=== PATIENT | female | born 1950 | race Hispanic/Latino ===

== ENCOUNTER 2017-02-13 12:19 | Outpatient (CLI) | payer MEDICARE ==
--- NOTE | 2017-02-14 09:13 | Mammography Report ---
BILATERAL DIGITAL AUGMENTED SCREENING MAMMOGRAM with CAD: 02/13/17 12:19:00 CLINICAL: Routine screening. And COMPARISON:01/04/16 FINDINGS: Screening views with and without implant displacement demonstrate relatively fatty breasts. No mass, architectural distortion or suspicious calcifications. Bilateral subglandular implants with extensive capsular calcification are unchanged compared to previous exams. IMPRESSION: No mammographic evidence of malignancy. BI-RADS CATEGORY: 2 -- Benign RECOMMENDATION: Routine mammographic screening in one year. ACR BI-RADS MAMMOGRAPHIC CODES: 0 = Needs additional imaging evaluation; 1 = Negative; 2 = Benign; 3 = Probably benign; 4 = Suspicious; 5 = Malignant; 6 = Known biopsy-proven malignancy COMMENT: 1. Dense breast tissue, i.e., adenosis, fibrocystic changes, etc., may obscure an underlying neoplasm. 2. Approximately 10% of cancers are not detected with mammography. 3. A negative mammography report should not delay biopsy if a clinically suspicious mass is present. COMMENT: Patient follow-up letters are generated via our [employer] application.
== END 2017-02-13 12:20 | disposition home or self-care (01) ==
LOC: SPVWC 12:19
PROVIDERS: ATTEND Internal Medicine
DX: Z12.31 Encounter for screening mammogram for malignant neoplasm of breast (principal)
CPT/HCPCS: 77067; G0202

== ENCOUNTER 2018-03-27 11:00 | Outpatient (CLI) | payer MEDICARE ==
--- NOTE | 2018-03-27 13:12 | Mammography Report ---
IMPLANT MAMMOGRAM: Bilateral breast imaging was done with standard and displacement technique. The breast parenchyma is generally fatty replaced and symmetrically seen ventral to each implant. The implant contours are irregularly shaped and partially calcified. No suspicious findings or secondary signs of malignancy are seen. No interval change compared to prior exam in January 2017. CAD was utilized. CONCLUSION: Negative implant mammogram. RECOMMENDATION: Routine follow-up. BI-RADS CATEGORY: 1 = Negative ACR BI-RADS MAMMOGRAPHIC CODES: 0 = Needs additional imaging evaluation; 1 = Negative; 2 = Benign; 3 = Probably benign; 4 = Suspicious; 5 = Malignant; 6 = Known biopsy-proven malignancy COMMENT: 1. Dense breast tissue, i.e., adenosis, fibrocystic changes, etc., may obscure an underlying neoplasm. 2. Approximately 10% of cancers are not detected with mammography. 3. A negative mammography report should not delay biopsy if a clinically suspicious mass is present. COMMENT: Patient follow-up letters are generated in [employer].
== END 2018-03-27 11:01 | disposition home or self-care (01) ==
LOC: SPVWC 11:00
PROVIDERS: ATTEND Internal Medicine
DX: Z12.31 Encounter for screening mammogram for malignant neoplasm of breast (principal)
CPT/HCPCS: 77067

== ENCOUNTER 2019-05-12 11:55 | Outpatient (CLI) | payer MEDICARE ==
--- NOTE | 2019-05-12 15:30 | Mammography Report ---
BILATERAL DIGITAL SCREENING MAMMOGRAM WITH CAD AND IMPLANT-DISPLACED VIEWS HISTORY: Routine screening. TECHNIQUE: Routine digital mammographic imaging performed. This examination was interpreted with bethany menchaca benefit of Computer-aided Detection analysis. COMPARISON: 03/27/2018 and 02/13/2017 FINDINGS: Breast Density: Predominantly fatty Digital standard and implant-displaced CC and MLO views demonstrate no mammographic evidence of malig nicole. Bilateral subglandular implants are in place.. IMPRESSION: No mammographic evidence of malignancy. If the clinical examination remains stable, recommend bilate ral mammogram in approximately one year. BIRADS 2: Benign Finding(s). FURTHER INFORMATION: According to the [employer], yearly mammograms are recommend ed starting at age 40 and continuing as long as a woman is in good health. Clinical Breast Exams shou ld be part of a periodic health exam-about every 3 years for women in their 20s and 30s and every yea r for women 40 and over. Breast self exam is an option for women starting in their 20s. Any breast ch sánchez noted on a breast self exam should be reported promptly to the patient's healthcare provider. Br east MRI is recommended for women with an approximately 20-25% or greater lifetime risk of breast can cer, including women with a strong family history of breast or ovarian cancer and women who have been treated for Hodgkin's disease. A negative Mammography report should not discourage follow up or biopsy of a clinically significant f inding and/or abnormality. Dense breast tissue may obscure small neoplasms. The patient will be entered into a reminder system with a target due date for the next screening mamm ogram. Signer Name: Leonardo Virk MD Signed: 05/12/2019 3:26 PM Workstation Name: [id number]
== END 2019-05-12 11:56 | disposition home or self-care (01) ==
LOC: SPVWC 11:55
PROVIDERS: ATTEND Internal Medicine
DX: Z12.31 Encounter for screening mammogram for malignant neoplasm of breast (principal)
CPT/HCPCS: 77067

== ENCOUNTER 2020-08-11 11:24 | Outpatient (CLI) | payer MEDICARE | END 2020-08-11 11:25 | disposition home or self-care (01) | LOC: SPVWC 11:24 | PROVIDERS: ATTEND Internal Medicine | DX: Z12.31 Encounter for screening mammogram for malignant neoplasm of breast (principal) | CPT/HCPCS: 77067 ==

== ENCOUNTER 2021-08-15 11:31 | Outpatient (CLI) | payer MEDICARE ==
--- NOTE | 2021-08-15 18:05 | Mammography Report ---
DIGITAL SCREENING MAMMOGRAM WITH CAD, 08/15/2021 CLINICAL INFORMATION / INDICATION: Routine screening mammography. SCREENING MAMMO WITH B/L IMPLANTS Z 12.31 TECHNIQUE: Digital bilateral 2D mammography was obtained in the craniocaudal and mediolateral obliqu e projections. This examination was interpreted with the benefit of Computer-Aided Detection analysis . COMPARISON: 08/11/2020, 05/12/2019, 03/27/2018 FINDINGS: Breast Density: There are scattered areas of fibroglandular density. No dominant mass, suspicious calcifications, or architectural distortion in the left breast. Within the posterior third of the upper outer right breast there is an indeterminant focal asymmetry, approximately 8-9 centimeters from the nipple. There is also right axillary lymphadenopathy. IMPRESSION: Indeterminate focal asymmetry within the right upper outer quadrant, approximately 8 to 9 cm from the nipple with associated lymphadenopathy. Recommend spot compression views and ultrasound. Follow up recommendation: Special View: Spot BI-RADS Category 0: Incomplete. Needs additional imaging evaluation and/or prior mammograms for maria a rison. A "normal" or negative report should not discourage follow up or biopsy of a clinically significant f inding. A written summary of these findings will be mailed to the patient. The patient will be entered into a mammography reporting system which will generate a reminder letter for the patient's next appointmen t at the appropriate interval. The [employer] recommends yearly mammograms starting at age 40 and continuing as l krishan as a woman is in good health. Breast MRI is recommended for women with an approximate 20-25% or greater lifetime risk of breast cancer, including women with a strong family history of breast or ova darlene cancer or who have been treated for Hodgkin's disease. Signer Name: Aldo Rizzo DO Signed: 08/15/2021 6:00 PM Workstation Name: [id number]
== END 2021-08-15 11:32 | disposition home or self-care (01) ==
LOC: SPVWC 11:31
PROVIDERS: ATTEND Internal Medicine
DX: Z12.31 Encounter for screening mammogram for malignant neoplasm of breast (principal)
CPT/HCPCS: 77067

== ENCOUNTER 2021-08-24 12:02 | Outpatient (CLI) | payer MEDICARE ==
--- NOTE | 2021-08-24 13:50 | Ultrasound Report ---
RIGHT DIGITAL DIAGNOSTIC MAMMOGRAM WITH CAD CONVENTIONAL, 08/24/2021 RIGHT LIMITED BREAST ULTRASOUND CLINICAL INFORMATION / INDICATION: Callback for ABNORMAL MAMMO R92.8 TECHNIQUE: Digital right mammographic imaging was performed. Spot compression views were obtained. [facility]. This examination was interpreted with the benefit of Computer-Aided D etection (CAD) analysis. COMPARISON: Mammograms dated 08/15/2021 and 08/11/2020 FINDINGS: Breast Density: There are scattered areas of fibroglandular density. MAMMOGRAPHIC FINDINGS: Spot compression view demonstrates persistence of an irregular equal density m ass within the upper outer quadrant of the right breast. ULTRASOUND FINDINGS: Targeted ultrasound evaluation was performed of the area of interest. Ultrasou nd imaging of the right breast at the 9:00 position, 10 cm from the nipple demonstrates a hypoechoic irregular mass measuring approximately 0.7 x 0.5 x 0.7 cm. This mass likely corresponds to the area o f mammographic concern. IMPRESSION: Suspicious mass within the right breast at the 9:00 position, 10 cm from the nipple. Ultr asound guided biopsy is recommended for further evaluation. If the post biopsy mammogram demonstrates the marker clip outside of the area of mammographic concern then a tomosynthesis guided biopsy is re commended. Follow up recommendation: Biopsy BI-RADS Category 4: Suspicious for Malignancy. A "normal" or negative report should not discourage follow up or biopsy of a clinically significant f inding. A written summary of these findings will be mailed to the patient. The patient will be entered into a mammography reporting system which will generate a reminder letter for the patient's next appointmen t at the appropriate interval. According to the [employer], yearly mammograms are recommended starting at age 40 and continuing as long as a woman is in good health. Breast MRI is recommended for women with an chris roximately 20-25% or greater lifetime risk of breast cancer, including women with a strong family his tory of breast or ovarian cancer and women who have been treated for Hodgkin's disease. Signer Name: Aldo Rizzo DO Signed: 08/24/2021 1:46 PM Workstation Name: [id number]
== END 2021-08-24 12:03 | disposition home or self-care (01) ==
LOC: SPVWC 12:02
PROVIDERS: ATTEND Internal Medicine
DX: R92.8 Other abnormal and inconclusive findings on diagnostic imaging of breast (principal)